=== PATIENT | female | born 1940 | race Caucasian/White ===

== ENCOUNTER → 2017-06-04 | Outpatient (CLI) | payer OTHER | LOC: BHFA 13:15 | PROVIDERS: ATTEND Internal Medicine Interventional Cardiology | DX: I05.9 Rheumatic mitral valve disease, unspecified (principal); I35.9 Nonrheumatic aortic valve disorder, unspecified ==

== ENCOUNTER 2017-06-20 10:39 | Day surgery (SDC) | payer OTHER ==
[2017-06-20] MEDS ORDERED: BUPIVACAINE 0.25% 30 ML SDV ONE (10:50)
[2017-06-20] MEDS ORDERED: BACITRACIN 50,000 UNITS/10 ML SYR IRR ONE (10:51)
[2017-06-20] MEDS ORDERED: ceFAZolin 2 GM/SWFI 2 GM/20 ML SYR IVP ONE (10:57)
[2017-06-20] MEDS ORDERED: LR 1,000 ML IV ONE (10:57)
[2017-06-20] MEDS ORDERED: LIDOCAINE 1% 2 ML INJ ID PRN (10:57)
[2017-06-20 11:33] VITALS: PULSE 63
[2017-06-20] MEDS ORDERED: MIDAZOLAM 2 MG/2 ML VIAL IVP ONE (11:52)
--- NOTE | 2017-06-20 11:54 | PDANEPAE ---
ANE History of Present Illness lft bunion ANE Past Medical History - Cardiovascular History Hx Hypertension: No Hx Arrhythmias: No Hx Chest Pain: No Hx Coronary Artery / Peripheral Vascular Disease: No Hx CHF / Valvular Disease: No Hx Palpitations: No Cardiovascular History Comment: "leaky valves x2 -mild" Echo done 06-04-17. Sees Dr Boateng 06-12-17. - Pulmonary History Hx COPD: Yes Hx Asthma/Reactive Airway Disease: No Hx Recent Upper Respiratory Infection: No Hx Oxygen in Use at Home: No Hx Sleep Apnea: Yes Sleep Apnea Screening Result - Last Documented: Positive Pulmonary History Comment: SLIGHT COPD,Sl ASTHMA-No inhaler use, SOB - Neurologic History Hx Cerebrovascular Accident: No Hx Seizures: No Hx Dementia: No Neurologic History Comment: partial seizure epilepsy, occ migraines, H/A's. 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 RESP. ISSUES-SOB,ONGOING. H/A. macular degeneration. CPAP USER. OA -joint pain. inside L cheek-poss fungus/ autoimmune- tx w/rinse and gel - Chronic Pain History Chronic Pain: No - Surgical History Prior Surgeries: Breast reduction 1999. DETACHED RETINA x2 ''s ANE Review of Systems Review of Systems: - Exercise capacity METS (RN): 4 METS ANE Patient History - Allergies Allergies/Adverse Reactions: Sulfa (Sulfonamide Antibiotics) Allergy (Verified 06/05/17 10:59) Rash - Home Medications Home Medications: Fluoxetine 40 mg PO DAILY 02/03/14 [Last Taken 06/20/17 08:00] HYDROCODONE BIT/ACETAMINOPHEN 5 mg PO 02/03/14 [Last Taken 2 Days Ago ~06/18/17] Levothyroxine 50 mcg PO DAILY 02/03/14 [Last Taken 1 Day Ago ~06/19/17] OXYCODONE HCL 10 mg PO DAILY 02/03/14 [Last Taken 06/19/17 22:00] ALPRAZolam 1 mg PO HS 04/16/16 [Last Taken 06/19/17 22:30] Olanzapine 06/05/17 [Last Taken 06/19/17 22:00] Topamax 06/05/17 [Last Taken 06/20/17 08:00] Benadryl 06/20/17 [Last Taken 1 Day Ago ~06/19/17] Pramipexole Di-HCl [Mirapex 1.5 mg] 0.75 mg 06/20/17 [Last Taken 06/19/17 22:00] - NPO status NPO Since - Liquids (Date): 06/20/17 NPO Since - Liquids (Time): 08:00 NPO Since - Solids (Date): 06/19/17 NPO Since - Solids (Time): 21:00 - Smoking Hx Smoking Status: Former smoker - Family Anes Hx Family Hx Anesthesia Complications: none ANE Labs/Vital Signs - Vital Signs Vital Signs: reviewed preoperatively; see RN documention for details Blood Pressure: 108/59 Heart Rate: 63 Respiratory Rate: 18 O2 Sat (%): 98 Height: 152.4 cm Weight: 50.802 kg ANE Physical Exam - Airway Neck exam: FROM Mallampati Score: Class 2 Mouth exam: normal dental/mouth exam - Pulmonary Pulmonary: no respiratory distress - Cardiovascular Cardiovascular: regular rate and rhythym - ASA Status ASA Status: II ANE Anesthesia Plan Anesthesia Plan: MAC
[2017-06-20] MEDS ORDERED: PROPOFOL 200 MG/20 ML VIAL ONE ×3 (12:10→13:57)
[2017-06-20] MEDS ORDERED: fentaNYL 100 MCG/2 ML INJ ONE (12:10)
[2017-06-20] MEDS ORDERED: NALOXONE HCL 0.4 MG/ML INJ IVP PRN (13:32)
[2017-06-20] MEDS ORDERED: PROMETHAZINE HCL 25 MG/ML INJ IVP PRN (13:32)
[2017-06-20] MEDS ORDERED: ONDANSETRON 4 MG/2 ML VIAL IVP PRN (13:32)
[2017-06-20] MEDS ORDERED: HYDROmorphONE/DILAUDID 1 MG/ML INJ IVP PRN (13:32)
[2017-06-20] MEDS ORDERED: fentaNYL 100 MCG/2 ML INJ IVP PRN (13:32)
--- NOTE | 2017-06-20 14:37 | PDHPUP ---
History & Physical Update H&P update statement: This history and physical update is based on an assessment of the patient which was completed after admission or registration (within 24 hours), but prior to the surgery/procedure.
--- NOTE | 2017-06-20 14:38 | POSTANESTH ---
Post Anesthetic Evaluation Cardiovascular Status: Normal, Stable Respiratory Status: Normal, Stable Level of Consciousness/Mental Status: Can Participate in Eval Pain Control: Adequate, Prn Tx Ordered Nausea/Vomiting Control: Adequate, Prn Tx Ordered Complications Possibly Related to Anesthesia: None Noted
--- NOTE | 2017-06-20 14:40 | POSTOPPROG ---
Post Op Note Date of Operation: 06/20/17 Surgeon: Kali Donaldson Operations Specialists: none Anesthesiologist: armando Anesthesia: IV Sedation Pre-op Diagnosis: bunion left Post-op Diagnosis: same Indication: painful bunion Procedure: lapidus fusion left with bunionectomy Findings: none Inf/Abcess present in the surg proc area at time of surgery?: No Depth: Deep Incisional (Fascial) EBL: Minimal Total fluids administered: 20cc .25% marcaine plain and with epi 9/1 ratio Complications: none Drains: Other (none)
[2017-06-20 15:07] VITALS: RESP 14
[2017-06-20 15:59] VITALS: BP 105/55; TEMP 98.6; O2SAT 97
--- NOTE | 2017-06-20 22:57 | GOP ---
[f rep st] OPERATIVE REPORT DATE OF OPERATION: SURGEON: Kali Donaldson DPM CLINICAL QUALITY ANALYST: None. ANESTHESIA: Local with MAC. ANESTHESIOLOGIST: Dr. Lindsey. PREOPERATIVE DIAGNOSIS: 1. Instability, left first metatarsal cuneiform joint. 2. Instability, left intercuneiform joints. 3. Left hallux abductovalgus. POSTOPERATIVE DIAGNOSIS: 1. Instability, left first metatarsal cuneiform joint. 2. Instability, left intercuneiform joints. 3. Left hallux abductovalgus. PROCEDURE PERFORMED: 1. First metatarsal cuneiform fusion, left. 2. Intercuneiform fusion, left. 3. Modified Tian bunionectomy, left. FINDINGS: ESTIMATED BLOOD LOSS: Less than 10 cc. DESCRIPTION OF PROCEDURE: The patient presented to [facility] and was cleared for the intended procedure. Patient was taken the operating room, placed on the table in a supine position. IV sedation was started per the anesthesia department. Foot was anesthetized and infiltrated in ner ve block fashion. Foot was prepped, scrubbed and draped in the usual sterile fashion. Following exs anguination by elevation with an Esmarch bandage, pneumatic ankle tourniquet was inflated to 225 mmHg . At this time, attention was directed to the dorsal medial aspect of the left 1st ray, where a linear incision was started on the medial aspect of the medial cuneiform, curving dorsally and running media l to the extensor hallucis longus tendon over the level of the metatarsophalangeal joint into the lev el of the hallux interphalangeal joint. This incision was carried deep, utilizing sharp and blunt di ssection, making sure that all neurovascular structures were identified and retracted at this time. All superficial bleeders were cauterized. The incision was carried down to the level of the metatars ophalangeal joint. At this time, attention was redirected to the 1st intermetatarsal space where, again, utilizing sharp and blunt dissection, it was carried down to the level of the adductor tendon. The adductor tendon was sharply released from its insertion at the base of the proximal phalanx, and sectioned and remove d. The attention was then directed to the sesamoids, which were freed up as well. Upon completion o f this, a McGlamry elevator was introduced to confirm no adhesions between the 1st metatarsal head an d the sesamoidal apparatus. This immediately resulted in better range of motion at that joint. Upon completion of this, the attention was directed back to the metatarsophalangeal joint, where an i nverted L capsulotomy was performed. Capsular tissues were dissected free medially and laterally to allow for adequate exposure to the head of the metatarsal and base of the proximal phalanx. Minimal degenerative arthritic changes were noted at the joint level at this time. Utilizing a sagittal saw, the hypertrophied medial eminence was resected. The area was then smoothed with a power bur. The a los was flushed with copious amounts of sterile saline. Upon completion of this, there was still not ed to be hypermobility at the 1st metatarsal cuneiform joint. It was decided that a fusion of the teresa int would be necessary at this time. At this point, attention was directed to the metatarsal cuneiform joint capsule, where a linear capsu lotomy was performed. Capsular tissues were dissected free dorsally and plantarly, to allow for adeq uate exposure to the site, making sure to leave the anterior tibial tendon insertion alone. Upon com pletion of this, a sagittal saw was utilized to remove the cartilaginous surface from the medial cune iform. This was performed in a straight [id number] position, parallel to the cartilaginous dexter rface. The 2nd osteotomy was then performed in the base of the 1st metatarsal. This was again perfo rmed parallel to the cartilaginous surface but performed in a wedge running from proximal medial to d istal lateral; this 2 mm wedge of bone was then dissected free and removed. Both sides of the joint were confirmed to have no cartilaginous surface left, before being fenestrated with a drill bit, down to healthy bleeding bone. Again, the area was flushed with copious amounts of sterile saline. At this point, the metatarsal was moved laterally and re-impacted upon the cuneiform and held tempora rily with K-wire fixation. C-arm fluoroscopy at this point showed an excellent reduction of the inte rmetatarsal angle and reduction of the subluxation at the 1st metatarsophalangeal joint. A 2nd K-wir e was then driven in the metatarsal head from medial to lateral, into the 2nd metatarsal to act as an other stability point. The Lapidus fusion plate was then placed onto the metatarsal cuneiform joint in the appropriate plantar alignment. It was held temporarily with 1 BB-Octavio, both proximal and dista l. Again, C-arm fluoroscopy at this point showed excellent positioning and reduction of the intermet atarsal angle. The 2 distal screws were then drilled appropriately and both measured at 16 mm. Thes e were placed across the plate with good compression occurring at that time. The lag screw was then drilled through the plate, confirming with C-arm fluoroscopy that we are running from plantar distal to dorsal proximal. The area had a 3.5 cortical screw by 34 mm placed across the site at this time. Excellent compression at the fusion site was obtained, ensuring that the screw actually went into th e medial cuneiform to lux greater stability across the site. The screw was not completely tighten ed before the K-wire fixation was removed. The screw was then tightened appropriately. Upon completion of this, the 2 most proximal screws were drilled and ultimately, 3.5 locking screws b y 20 mm were placed into each of the sites. Upon completion of this, excellent alignment was still a ppreciable. The areas were flushed with copious amounts of sterile saline. It was decided that, giv en the rectus alignment of the joint but continued curvature to the proximal phalanx, we would not pe rform an Kishore osteotomy for cosmetic reasons. Capsule at both the metatarsal cuneiform and metatarso phalangeal joint were then closed with 2-0 and 3-0 Vicryl, followed by subcutaneous closure with 5-0 Vicryl and skin closure with 5-0 nylon. The area was dressed with Betadine-soaked Adaptics, 4 x 4's, Crista, and Cobshira. The patient was then placed into a posterior splint before the pneumatic ankle tourniquet was released for a total tourniq uet time of 99 minutes. PATHOLOGY: None. HEMOSTASIS: PAT at 250 mmHg, x 99 minutes. MATERIALS: 1. Arthrex short Lapidus plate, left. 2. Arthrex 3.5 locking screws x 16, 16, 20, and 20. 3. Arthrex 3.5 cortical screw x 34 mm. INJECTABLES: 20 cc, 9:1 of 0.25% Marcaine plain, 0.25% Marcaine with epi preoperatively. COMPLICATIONS: None. /[id number]/MODL
== END 2017-06-20 15:59 | disposition home or self-care (01) ==
LOC: FSGY 10:39
PROVIDERS: ATTEND Podiatrist Primary Podiatric Medicine
DX: M20.12 Hallux valgus (acquired), left foot (principal); M24.875 Other specific joint derangements left foot, not elsewhere classified; M79.7 Fibromyalgia; G47.33 Obstructive sleep apnea (adult) (pediatric); F32.9 Major depressive disorder, single episode, unspecified; Z87.891 Personal history of nicotine dependence
CPT/HCPCS: C1713; J0171; J0690; J2250; J2704; J3010

== ENCOUNTER → 2018-09-02 | Outpatient (CLI) | payer OTHER ==
[~2018-09-02] MED LIST: GADOBUTROL 10 ML VIAL IVP ONE
== END ==
LOC: FIMAGING 14:55
PROVIDERS: ATTEND Psychiatry & Neurology Neurology
DX: D33.2 Benign neoplasm of brain, unspecified (principal)
CPT/HCPCS: 70553; A9585

== ENCOUNTER → 2018-11-07 | Outpatient (CLI) | payer OTHER | LOC: GIMAGING 09:41 | PROVIDERS: ATTEND Nurse Practitioner Family | DX: M24.852 Other specific joint derangements of left hip, not elsewhere classified (principal) | CPT/HCPCS: 73502-PO ==

== ENCOUNTER 2018-11-08 13:03 | Emergency (ER) | payer OTHER ==
--- NOTE | 2018-11-08 13:27 | EDPHY ---
H & P Time Seen by Provider: 11/08/18 13:09 HPI/ROS: HPI Left hip pain. 77-year-old female by private vehicle with her . This patient reports that 5 days ago she woke up with atraumatic left hip pain. She describes this as being above and slightly posterior to the greater trochanter of the left femur. She describes it is radiating through her lateral buttock, lateral hip and sometimes down the lateral aspect of her left thigh but not below the knee. She states that it is sometimes exacerbated with weight-bearing and walking but sometimes not. She does state that it is consistently relieved with rest and nonweightbearing. She denies any history of fall or other trauma. She was seen at the [facility] earlier today. She had a left hip x-ray series which was read as essentially negative for acute pathology by staff radiologist Dr. Mahad Gracia. She denies any loss of sensation or weakness in her lower extremities. No bowel or bladder incontinence. She has not had a fever. She denies any back pain. ROS: Constitutional: No fever, no chills. No weakness. Eyes: No discharge. No changes in vision. ENT: No sore throat. No nasal congestion or rhinorrhea. Respiratory: No cough. No shortness of breath. Cardiac: No chest pain, no palpitations. Gastrointestinal: No abdominal pain, no vomiting, no diarrhea. Genitourinary: No hematuria. No dysuria or increased frequency with urination. Musculoskeletal: No back pain. No neck pain. As above. Skin: No rashes. Neurological: No headache. No focal weakness or altered sensation. Past medical history: Rheumatic fever as a child, bilateral detached retina, hypothyroid, fibromyalgia, arthritis. Social history: Nonsmoker. She is here with her . No alcohol. Physical Exam: General Appearance: Alert, no distress. This patient is responding to questions appropriately and in full sentences. This patient appears well- hydrated and well-nourished. Head: Normocephalic atraumatic. Eyes: Pupils equal and round no pallor or injection. No lid edema, erythema or injection. ENT, Mouth: Mucous membranes are moist. The pharyngeal tissues are unremarkable. No edema or swelling. No asymmetry suggestive of abscess. No erythema or exudates. Gastrointestinal: Abdomen is soft and nontender, no masses, bowel sounds normal. No focal tenderness at McBurney's point. No Wadsworth sign. Back exam: No midline thoracic, lumbar, sacral tenderness on palpation. No paraspinal tenderness on palpation. No soft tissue changes. She is neurologically intact in all myotomes in dermatomes of the bilateral lower extremities. She has a negative same side and cross-eyed straight leg raise test. Neurological: Motor sensory function is grossly intact. Cranial nerves are normal. Gait is normal. Skin: Warm and dry, no rashes. Left hip exam: She has vague tenderness on palpation over the posterior lateral aspect of the left hip cephalad and just posterior to the greater trochanter. There is no soft tissue changes noted. Specifically, no erythema, no warmth, no swelling or edema. No ecchymosis noted. She has no significant tenderness elicited by active and passive flexion, extension, internal and external rotation of the left hip. There is no pain elicited by axial loading of the left hip. The left lower extremity is symmetric in comparison to the right lower extremity. Left lower extremity is neurovascularly intact. All joints range without pain or impingement except noted. Psychiatric: No agitation. No depression. Database: EKG: Imaging: MRI of LS spine without contrast: Significant for severe L4-L5 degenerative disc space narrowing with a grade 1 anterolisthesis and some cortical endplate irregularity with trace fluid in the otherwise desiccated intervertebral disc. Progressive degenerative changes at L2-L3 with severe central canal stenosis. And significant left neural foraminal stenosis. L3-L4 degenerative disc disease with moderate central canal stenosis. Results were discussed with staff radiologist Dr. Kalyan Lundy. MRI of left hip without contrast: Significant for a moderate partial tear of the left hamstring tendon and tendon involving the gluteus minimus. Otherwise degenerative changes. Nothing significant to explain the level of this patient' s pain. Results were discussed with staff radiologist Dr. Onel Pandey. Procedures: Emergency department course: Triage vital signs reviewed. The patient is afebrile. Vital signs are otherwise normal. She has a negative plain film x-ray from earlier today read by our radiology department. Her presentation is consistent with possible sciatica versus possible occult fracture involving left hip. MRI of the LS spine as well as the left hip will be obtained. Patient consents to this workup. When she is laying supine she does not have any pain and is declining pain medication at this time. 4:30 p.m., the patient was re-evaluated, resting comfortably at this time. She remains afebrile. Her back exam is unchanged from above. The left lower extremity is neurovascularly intact. Repeat neurologic Assessment is nonfocal. I feel diskitis is unlikely in this patient. I discussed the results of her MRIs with her and her . Neuro surgery paged. 4:35 p.m., spoke with on-call neurosurgeon Dr. Brandon Coleman. Case discussed in detail with him. Dr. Coleman reviewed the patient's MRIs. He feels diskitis is very unlikely. He recommends we start the patient on a Medrol Dosepak, pain medication and have her follow-up in their clinic on Saturday or Saturday of this week for re-evaluation and likely epidural steroid injection. This plan was discussed with the patient and her . They are in full agreement. She feels comfortable being discharged. They understand the follow-up plan. Return to emergency department precautions were discussed with both of them. All of their questions were answered. The patient was discharged in good condition with her . Differential Diagnosis: The differential diagnosis on this patient includes but is not limited to sacroiliitis, radiculopathy, occult fracture. Diskitis unlikely. This represents a partial list of diagnoses considered. These considerations are based on history, physical exam, past history, reassessment and diagnostic testing. Smoking Status: Former smoker Constitutional: Initial Vital Signs Temperature (C) 36.7 C 11/08/18 13:04 Heart Rate 90 11/08/18 13:04 Respiratory Rate 18 11/08/18 13:04 Blood Pressure 115/74 11/08/18 13:04 O2 Sat (%) 96 11/08/18 13:04 O2 Delivery Mode Nasal Cannula O2 (L/minute) 2 Allergies/Adverse Reactions: Sulfa (Sulfonamide Antibiotics) Allergy (Verified 11/08/18 13:04) Rash Home Medications: Medication Instructions Recorded Fluoxetine 40 mg PO DAILY 02/03/14 HYDROCODONE BIT/ACETAMINOPHEN 5 mg PO 02/03/14 Levothyroxine 50 mcg PO DAILY 02/03/14 OXYCODONE HCL 10 mg PO DAILY 02/03/14 ALPRAZolam 1 mg PO HS 04/16/16 Olanzapine 06/05/17 Topamax 06/05/17 Benadryl 06/20/17 Pramipexole Di-HCl [Mirapex 1.5 mg] 0.75 mg 06/20/17 methylPREDNISolone [Medrol Dose 4 mg PO AD #0 ea 11/08/18 [facility]] Medical Decision Making - Diagnostics Imaging Results: Imaging Impressions Lower Extremity MRI 11/08/18 13:20 Impression: 1. Partial tear anterosuperior labrum left hip, with minimal early degenerative change left hip. 2. Moderate tendinopathy and partial tear of the common hamstring tendon origin bilaterally, left greater than right. 3. Mild tendinopathy and partial tear gluteus medius tendon insertion of the left greater trochanter. 4. Leiomyomatous uterus. Benign-appearing cyst right adnexal region, measuring 2 cm. Consider follow-up pelvic ultrasound. Results called and discussed with Glenny Harvey M.D., on November 08, 2018 at 1557. E:CN/amm Lumbar Spine MRI 11/08/18 13:20 Impression: 1. There is severe L4-L5 degenerative disk space narrowing with a grade 1 anterolisthesis and some cortical endplate irregularity with trace fluid in the otherwise desiccated disk. While these findings may merely be related to the advanced degenerative change at this level, and early concurrent diskitis is not excluded; clinical correlation is suggested. There is also broad-based circumferential disk bulging with more focal cephalad disk prolapse, resulting in a severe central canal stenosis. There is also severe right and moderate left neural foraminal stenosis at this level. 2. Progressive degenerative change at L2-L3, with severe central canal stenosis , moderate right and moderate to severe left neural foraminal stenosis. 3. Severe degenerative disk disease at L3-L4 with moderate central canal stenosis, mild right neural foraminal narrowing, and severe left neural foraminal narrowing. Findings were discussed with Glenny Harvey MD at 15:14, on 2018. He indicated that the patient is not focally tender over the lumbar spine or the paraspinal soft tissues, and reports no fever. He will obtain a CBC with differential, and an ESR. - Data Points Medications Given: Discontinued Medications Lorazepam (Ativan Injection) 0.5 mg IVP EDNOW ONE Stop: 11/08/18 14:18 Last Admin: 11/08/18 14:37 Dose: 0.5 mg Departure - Departure Disposition: Home, Routine, Self-Care Clinical Impression: Left hip pain Condition: Good Instructions: Degenerative Disc Disease (ED), Hip Pain (ED) Additional Instructions: Read and follow provided instructions. Follow-up the neuro spine service, Dr. Brandon Coleman or 1 of his partners with that group as discussed on Saturday or Saturday of this week. Call their office on Saturday at 9:00 a.m. For appointment time. I spoke with Dr. Coleman specifically about you in the emergency department today. Narcotic pain medication/Vicodin: 1-2 every 4-6 hours as needed for pain. You should also take a stool softener such as docusate sodium which can be obtained [id number] at you're pharmacy, 100 mg twice daily for 3 times daily 8 hr apart while on narcotic pain medication. Ibuprofen dosin-500 mg every 6 hours with meals for the next 3 days only. Take only as needed for pain. Take Medrol steroid Dosepak as prescribed. Return to the emergency department for worsening pain, fever, bowel or bladder incontinence, loss of sensation or weakness in your left lower extremity or other serious concerns. Referrals: Brandon Coleman MD [Medical Doctor] - As per Instructions Prescriptions: methylPREDNISolone [Medrol Dose Eliud] 4 mg PO AD #0 ea
[2018-11-08] MEDS ORDERED: LORazepam 2 MG/ML INJ IVP ONE (14:17)
[2018-11-08] MEDS ORDERED: LORazepam 2 MG/ML INJ ONE (14:18)
[2018-11-08 17:25] VITALS: BP 109/65
== END 2018-11-08 17:24 | disposition home or self-care (01) ==
DX: M25.552 Pain in left hip (principal); M51.36 Other intervertebral disc degeneration, lumbar region; E03.9 Hypothyroidism, unspecified; M79.7 Fibromyalgia
CPT/HCPCS: 72148; 73721; 96374; 99285; J2060